=== PATIENT | female | born 1985 | race African-American/Black ===

== ENCOUNTER 2020-12-11 17:00 | Emergency (ER) | payer OTHER ==
[2020-12-11 17:59] VITALS: BP 107/64; PULSE 101; RESP 16; TEMP 98.4
--- NOTE | 2020-12-11 18:21 | ED ---
Recheck HPI - General Chief Complaint: Recheck/Abnormal Lab/Rx Stated Complaint: COVID TEST Source: family Mode of arrival: ambulatory Limitations: no limitations - History of Present Illness Initial Comments: 34-year-old female presenting to the emergency department for Covid testing. They deny any complaints at this time. They need to test for international travel. - Related Data Allergies Allergy/AdvReac Type Severity Reaction Status Date / Time No Known Allergies Allergy Verified 12/11/20 17:59 Review of Systems ROS Statement: Those systems with pertinent positive or pertinent negative responses have been documented in the HPI. ROS Other: All systems not noted in ROS Statement are negative. Past Medical History Past Medical History: No Reported History History of Any Multi-Drug Resistant Organisms: None Reported Past Surgical History: No Surgical Hx Reported Past Psychological History: No Psychological Hx Reported Smoking Status: Never smoker Past Alcohol Use History: None Reported Past Drug Use History: None Reported General Exam Limitations: no limitations General appearance: alert, in no apparent distress Head exam: Present: normal inspection Eye exam: Present: normal appearance ENT exam: Present: normal exam Neck exam: Present: normal inspection Extremities exam: Present: normal inspection Back exam: Present: normal inspection Neurological exam: Present: alert, oriented X3 Psychiatric exam: Present: normal affect, normal mood Skin exam: Present: intact, normal color Course Vital Signs 12/11/20 17:56 Temperature 98.4 F Pulse Rate 101 H Respiratory 16 Rate Blood Pressure 107/64 O2 Sat by Pulse 99 Oximetry Medical Decision Making - Medical Decision Making Negative Covid - Lab Data Lab Results 12/11/20 Range/Units 17:20 Coronavirus (PCR) Not Detected (Not Detectd) Disposition Clinical Impression: Lab test negative for COVID-19 virus Disposition: HOME SELF-CARE Condition: Stable Additional Instructions: Please return to the Emergency Department if symptoms worsen or any other concerns. Is patient prescribed a controlled substance at d/c from ED?: No Referrals: None,Stated [Primary Care Provider] - 1-2 days Time of Disposition: 18:21
== END 2020-12-11 18:47 | disposition home or self-care (01) ==
LOC: EC 17:00
DX: Z20.822 Contact with and (suspected) exposure to COVID-19 (principal)
CPT/HCPCS: 87635; 99282